=== PATIENT | male | born 2000 | race Two or more races ===

== ENCOUNTER 2023-05-27 23:58 | Emergency (ER) | payer MEDICAID, OTHER ==
[~2023-05-27] VITALS: Ht 188 cm; Wt 157.6 kg
[2023-05-28 01:08] LABS: Urine Bacteria NONE SEEN /hpf (None Seen); Urine Blood Negative /uL (Negative); Urine Clarity Clear (Clear); Urine Color Colorless (Yellow); Urine Protein, UAD Negative (Negative); Urine Specific Gravity 1.019 (1.001-1.035); Urine Urobilinogen Normal (Negative); Urine WBC 7 /hpf (0 - 3)
[2023-05-28 01:52] VITALS: BP 136/67; TEMP 97.9; O2SAT 97
[2023-05-28 01:55] VITALS: PULSE 82; RESP 18
[2023-05-28] MEDS ORDERED: ACYC400T16 PO (02:42)
[2023-05-29 07:06] LABS: RPR Non Reactive (Non Reactive)
[2023-05-30 10:06] LABS: Chlamydia Trachomatis, NAA Negative (Negative); Neisseria gonorrhoeae, NAA Negative (Negative)
== END 2023-05-28 02:55 | disposition home or self-care (01) ==
LOC: ER 05-28 00:04
DX: B00.89 Other herpesviral infection (principal); F17.210 Nicotine dependence, cigarettes, uncomplicated
CPT/HCPCS: 81001; 86592; 86703